=== PATIENT | female | born 1965 | race Native Hawaiian/Other Pacific Islander ===

== ENCOUNTER 2022-10-30 09:58 | Outpatient (CLI) | payer BC | END 2022-10-30 19:21 | disposition home or self-care (01) | LOC: RESP 09:58 | PROVIDERS: ATTEND Internal Medicine | DX: R07.89 Other chest pain (principal); R06.02 Shortness of breath; R42 Dizziness and giddiness ==

== ENCOUNTER 2022-11-04 08:29 | Outpatient (CLI) | payer BC | END 2022-11-04 18:55 | disposition home or self-care (01) | LOC: NM 08:29 | PROVIDERS: ATTEND Internal Medicine | DX: R07.89 Other chest pain (principal); R06.02 Shortness of breath; R42 Dizziness and giddiness | CPT/HCPCS: A9500 ==

== ENCOUNTER 2022-11-13 15:17 | Outpatient (CLI) | payer BC | END 2022-11-13 20:01 | disposition home or self-care (01) | LOC: RAD 15:17 | PROVIDERS: ATTEND Internal Medicine | DX: M54.59 Other low back pain (principal) ==